=== PATIENT | male | born 1985 | race Two or more races ===

== ENCOUNTER 2018-11-22 23:27 | Emergency (ER) | payer OTHER ==
[~2018-11-22] VITALS: Ht 170.2 cm; Wt 59.0 kg
[2018-11-23] MEDS ORDERED: TETRACAINE HCL/PF 0.5% UD 2 ML BOTTLE ONE (00:45)
[2018-11-23] MEDS ORDERED: FLUORESCEIN SODIUM OPHTH 1 EA STRIP ONE (00:45)
[2018-11-23] MEDS ORDERED: HYDROCODONE/APAP 5/325MG 1 EACH TABLET ONE (00:46)
--- NOTE | 2018-11-23 00:53 | NUR ---
PAKTINAT, PAC IS AT THE BEDSIDE
[2018-11-23] MEDS ORDERED: HYDROCODONE/APAP 5/325MG 1 EACH TABLET PO ONE (01:00)
[2018-11-23] MEDS ORDERED: FLUORESCEIN SODIUM OPHTH 1 EA STRIP OP ONE (01:00)
[2018-11-23] MEDS ORDERED: TETRACAINE HCL/PF 0.5% UD 2 ML BOTTLE OP ONE (01:00)
--- NOTE | 2018-11-23 01:26 | NUR ---
Patient discharged to home in stable condition. Written and verbal after care instructions given. Patient verbalizes understanding of instruction AND RX. PT TO F/U WITH OPTHMOLOGY [facility]. PT HAS A RT FOOT AMPUTATION WITH AN ORTHO BOOT ON. PT HAS A LUE MIDLINE IN PLACE. LINE IS FLUSHING WELL. BLOOD WAS DRAWN AND SENT TO LAB.
[2018-11-23 01:35] VITALS: BP 125/84
== END 2018-11-23 01:30 | disposition home or self-care (01) ==
LOC: ER 23:35
DX: H16.003 Unspecified corneal ulcer, bilateral (principal); F17.200 Nicotine dependence, unspecified, uncomplicated

== ENCOUNTER 2020-03-08 21:38 | Emergency (ER) | payer OTHER ==
[~2020-03-08] VITALS: Ht 167.6 cm; Wt 62.6 kg
[2020-03-08 21:52] VITALS: BP 151/95
--- NOTE | 2020-03-08 22:21 | NUR ---
xray at bedside.
[2020-03-08] MEDS ORDERED: HYDROCODONE/APAP 5/325MG TABLET ONE (22:23)
[2020-03-08] MEDS ORDERED: TDAP [DIPH/PERTUSSIS/TET] 0.5 ML VIAL IM ONE ×2 (22:23→22:30)
[2020-03-08] MEDS ORDERED: HYDROCODONE/APAP 5/325MG TABLET PO ONE (22:30)
--- NOTE | 2020-03-08 22:49 | NUR ---
PATIENT'S FINGER IS CLEANED.
--- NOTE | 2020-03-08 23:07 | NUR ---
PATIENT'S FINGER IS WRAPPED. PATIENT VERBALIZES UNDERSTANDING TO FOLLOW UP WITH A HAND SURGEON WITHIN THE NEXT 24 HOURS.
--- NOTE | 2020-03-08 23:14 | NUR ---
Patient discharged to home in stable condition. Written and verbal after care instructions given. Patient verbalizes understanding of instruction.
--- NOTE | 2020-03-08 23:15 | NUR ---
PATIENT IS PRESCRIBED MEDICATIONS AND INSTRUCTED NOT TO OPERATE BEHIND ANY MACHINERY.
== END 2020-03-08 23:23 | disposition home or self-care (01) ==
LOC: ER 21:45
DX: S61.102A Unspecified open wound of left thumb with damage to nail, initial encounter (principal); W26.8XXA Contact with other sharp object(s), not elsewhere classified, initial encounter; Y93.89 Activity, other specified; Y92.89 Other specified places as the place of occurrence of the external cause; Y99.8 Other external cause status
CPT/HCPCS: 73140; 90471; 90715; 99283; A6403

== ENCOUNTER 2020-04-29 11:40 | Emergency (ER) | payer OTHER ==
[~2020-04-29] VITALS: Ht 170.2 cm; Wt 68.0 kg
[2020-04-29 11:55] VITALS: BP 145/78
--- NOTE | 2020-04-29 12:05 | NUR ---
DENNIS FROM HOME TO ER BED. AWAKE, ALERT BUT CONFUSED. PT STUTTERS WHEN TRALKED TO AND UNABLE TO GIVE ANSWER. PT APPEARS TO BE DRY, LIPS DRY AND ASKING FOR WATER. BROUGHT IN FOR SYNCOPAL EPISODE, EMT DID NOT REPORT AND TRAUMA NOR FALL. NOT NOTE VISUAL INJURY UPON ASSESSMENT. PT IN MONITOR. AWAITING MD FOR EVAL. WATER PROVIDED.
--- NOTE | 2020-04-29 12:05 | NUR ---
right eye pain and redness - noted this morning - poss. FB
--- NOTE | 2020-04-29 12:06 | NUR ---
visual acuity done
[2020-04-29] MEDS ORDERED: FLUORESCEIN SODIUM OPHTH 1 EA STRIP ONE (12:08)
--- NOTE | 2020-04-29 12:33 | NUR ---
DR. MCCRACKEN AT BEDSIDE FOR EVALUATION
[2020-04-29] MEDS: FLUORESCEIN SODIUM OPHTH 1 EA STRIP OP ONE (12:41)
[2020-04-29] MEDS ORDERED: CIPROFLOXACIN HCL 0.3% 5 ML BOTTLE RIGHTEYE SCH (13:00)
== END 2020-04-29 13:18 | disposition home or self-care (01) ==
LOC: ER 11:43
DX: T15.01XA Foreign body in cornea, right eye, initial encounter (principal); X58.XXXA Exposure to other specified factors, initial encounter; Y93.89 Activity, other specified; Y92.89 Other specified places as the place of occurrence of the external cause; Y99.8 Other external cause status

== ENCOUNTER 2021-02-06 10:38 | Emergency (ER) | payer OTHER ==
[~2021-02-06] VITALS: Ht 172.7 cm; Wt 59.0 kg
--- NOTE | 2021-02-06 11:00 | NUR ---
BIB SELF C/O HEADACHE AND FEVER STARTED LAST NIGHT TOOK TYLENOL AROUND 8AM TODAY. RATES PAIN 5/10. IN ROOM AIR AND DENIES SOB. RESPIRATION REGULAR AND UNLABORED. WILL CONTINUE TO MONITOR THE PATIENT.
[2021-02-06] MEDS ORDERED: IBUPROFEN 600 MG TABLET ONE (11:19)
[2021-02-06] MEDS ORDERED: IBUPROFEN 600 MG TABLET PO ONE (11:30)
--- NOTE | 2021-02-06 12:09 | NUR ---
covid swabs done and sent to the lab
--- NOTE | 2021-02-06 12:36 | NUR ---
Patient discharged to home in stable condition. Written and verbal after care instructions given. Patient verbalizes understanding of instruction.
[2021-02-06 12:37] VITALS: BP 116/75
--- NOTE | 2021-02-06 13:07 | NUR ---
Made a call to the patient and made aware that he is covid-19 positive. Gave education, the patient verbalized understanding.
--- NOTE | 2021-02-10 11:43 | NUR ---
Received a call from lab withspencer kruger that covid-19 pcr test is positive for the patient. Called the patient and made aware of his pcr result. The patient is provided with education and he verbalized understanding. Dr Lau aware.
== END 2021-02-06 12:37 | disposition home or self-care (01) ==
LOC: ER 10:41
DX: U07.1 COVID-19 (principal)
CPT/HCPCS: 71045; 87426; 99284; C9803; U0003; J7030

== ENCOUNTER 2021-07-15 10:00 | Emergency (ER) | payer OTHER ==
[~2021-07-15] VITALS: Ht 175.3 cm; Wt 60.8 kg
--- NOTE | 2021-07-15 10:00 | NUR ---
BIBS C/O R WRIST AND R KNEE PAIN FROM A GLF LAST NIGHT. PT DENIES TRAUMA. VITAL SIGNS WITHIN NORMAL LIMITS. BREATHING IS REGULAR AND UNLABORED.
--- NOTE | 2021-07-15 10:34 | NUR ---
X RAY AT BEDSIDE
[2021-07-15 11:23] VITALS: BP 132/84
[2021-07-15] MEDS ORDERED: NAPR-1009 PO (11:29)
--- NOTE | 2021-07-15 11:42 | NUR ---
Patient discharged to home in stable condition. Written and verbal after care instructions given. Patient verbalizes understanding of instruction.
== END 2021-07-15 12:04 | disposition home or self-care (01) ==
LOC: ER 10:03
DX: M25.561 Pain in right knee (principal); M25.531 Pain in right wrist; W01.0XXA Fall on same level from slipping, tripping and stumbling without subsequent striking against object, initial encounter; Y93.89 Activity, other specified; Y92.89 Other specified places as the place of occurrence of the external cause; Y99.8 Other external cause status
CPT/HCPCS: 73110; 73564-TC

== ENCOUNTER 2022-09-28 22:32 | Emergency (ER) | payer OTHER ==
[~2022-09-28] VITALS: Ht 195.6 cm; Wt 61.7 kg
[~2022-09-28 22:32] MED LIST: NAPR-1009 PO
--- NOTE | 2022-09-28 22:41 | NUR ---
BIB FAMILY FOR C/O L BACK PAIN RADIAITNG TO LLE X 5 DAYS
[2022-09-28] MEDS ORDERED: KETOROLAC TROMETHAMINE INJ 30 MG/ML VIAL IV ONE (23:00)
[2022-09-28] MEDS ORDERED: IV NS 0.9% 500 ML BAG IV ONE (23:00)
[2022-09-28] MEDS ORDERED: ONDANSETRON HCL/PF 4 MG/2 ML VIAL IVP ONE (23:00)
[2022-09-28] MEDS ORDERED: ONDANSETRON HCL/PF 4 MG/2 ML VIAL ONE (23:32)
[2022-09-28] MEDS ORDERED: KETOROLAC TROMETHAMINE INJ 30 MG/ML VIAL ONE (23:32)
[2022-09-29 00:01] LABS: ALBUMIN 3.4 g/dL (3.4-5.0); BILIRUBIN,DIRECT 0.1 mg/dL (0.0-0.2); BILIRUBIN,TOTAL 0.4 mg/dL (0.2-1.0); CALCIUM, SERUM 8.7 mg/dL (8.5-10.1); CREATININE 0.8 mg/dL (0.6-1.3); POTASSIUM 4.1 mmol/L (3.5-5.1); TOTAL PROTEIN, SERUM 7.3 g/dL (6.4-8.2)
[2022-09-29 00:04] LABS: BASOPHILS # (AUTO) 0.1 K/uL (0.0-0.2); BASOPHILS % (AUTO) 0.4 % (0.0-2.0); EOSINOPHILS % (AUTO) 4.2 % (0.0-6.0); HEMATOCRIT 41 % (39-51); HEMOGLOBIN 14.1 g/dL (13.5-17.5); LYMPHOCYTES # (AUTO) 2.6 K/uL (0.8-4.8); LYMPHOCYTES % (AUTO) 23.3 % (20.0-44.0); MEAN CORPUSCULAR HGB CONC 34 g/dl (31.0-36.0); MEAN CORPUSCULAR VOLUME 88 fL (80-96); MONOCYTES # (AUTO) 0.8 K/uL (0.1-1.30); NEUTROPHILS # (AUTO) 7.3 K/uL (1.8-8.9); NEUTROPHILS % (AUTO) 65.1 % (43.0-81.0); PLATELET COUNT (AUTO) 172 K/uL (150-450); RED BLOOD CELL COUNT(AUTO) 4.67 MIL/uL (4.5-6.0); WHITE BLOOD COUNT (AUTO) 11.2 K/uL (4.3-11.0)
[2022-09-29] MEDS ORDERED: ONDA4TAB5 PO (00:14)
[2022-09-29] MEDS ORDERED: CYCL5TAB PO (00:14)
[2022-09-29] MEDS ORDERED: DOCU-141 PO (00:14)
[2022-09-29] MEDS ORDERED: POLY17PO4 PO (00:14)
[2022-09-29] MEDS ORDERED: PRED50TA PO (00:14)
[2022-09-29] MEDS ORDERED: IBUP-1957 PO (00:14)
--- NOTE | 2022-09-29 00:43 | NUR ---
ADDENDUM: Intravenous End Time Documentation: Normal saline 1 liter (IV-WO) : start time: 2342 (09/28/2022); end time: 42: IV site: LAC PIV # 18 Port # 1
--- NOTE | 2022-09-29 01:00 | NUR ---
IV removed. Catheter intact and site benign. Pressure and 4x4 applied to site. No bleeding noted.
--- NOTE | 2022-09-29 01:04 | NUR ---
Patient discharged to home in stable condition. rx and Written and verbal after care instructions given. Patient verbalizes understanding of instruction.
[2022-09-29 01:31] VITALS: BP 133/92
== END 2022-09-29 01:31 | disposition home or self-care (01) ==
LOC: ER 22:33
DX: M54.42 Lumbago with sciatica, left side (principal); K52.9 Noninfective gastroenteritis and colitis, unspecified; K59.00 Constipation, unspecified; Z79.899 Other long term (current) drug therapy
CPT/HCPCS: 99285; 74176; 96374; 96361; 96375; 85025; 80048; 83690; 80076; 36415; 85730; J1885; J2405; J7040